=== PATIENT | female | born 1970 | race African-American/Black ===

== ENCOUNTER 2021-02-20 18:52 | Emergency (ER) | payer MEDICAID ==
[~2021-02-20] VITALS: Ht 165.1 cm; Wt 63.0 kg
[2021-02-20 18:59] VITALS: BP 148/78
[2021-02-20] MEDS ORDERED: ACETAMINOPHEN WITH CODEINE 300/30MG TABLET PO ONE (19:30)
[2021-02-20] MEDS ORDERED: T3 PO ×3 (20:27→20:29)
== END 2021-02-20 20:46 | disposition home or self-care (01) ==
LOC: ER 18:52
DX: M54.41 Lumbago with sciatica, right side (principal); R03.0 Elevated blood-pressure reading, without diagnosis of hypertension; G40.909 Epilepsy, unspecified, not intractable, without status epilepticus; F17.210 Nicotine dependence, cigarettes, uncomplicated; Z71.6 Tobacco abuse counseling
CPT/HCPCS: 72100; 99283; 99406